=== PATIENT | female | born 1955 | race Caucasian/White ===

== ENCOUNTER → 2016-11-13 | Outpatient (CLI) | payer MEDICARE ==
[~2016-11-13] VITALS: Ht 157.5 cm; Wt 129.3 kg
[~2016-11-13] MED LIST: ALBU90AE IH; ATOR20TA66 PO; BETA15CR4 TP; CEPH250T PO; CLOT15CR5 TP; DOXY100C42 PO; FLUT100D2 IH; FOLI1TAB24 PO; FURO20TA4 PO; GABA-490 PO; GLIM4TAB PO; GUAI600T43 PO; HYDR-3816 PO; INSN1U SQ; INSU100V31 IJ; LEVO200T6 PO; LEVO25TA5 PO; LISI-556 PO; LORA10TA7 PO; METF500T4 PO; METH1VIA2 IJ; NYST1POW22 MC; OXYC-197 PO; RISP4TAB2 PO
== END ==
LOC: PREOP 13:18
PROVIDERS: ATTEND Thoracic Surgery (Cardiothoracic Vascular Surgery)
DX: Z01.818 Encounter for other preprocedural examination; M54.9 Dorsalgia, unspecified

== ENCOUNTER 2016-11-20 05:51 | Day surgery (SDC) | payer MEDICARE ==
[~2016-11-20] VITALS: Ht 157.5 cm; Wt 129.3 kg
[~2016-11-20 05:51] MED LIST changes: -DOXY100C42 PO; -GUAI600T43 PO; -OXYC-197 PO
[2016-11-20] MEDS: LACTATED RINGERS 1,000 ML IV PRN ×2 (06:20→08:55)
[2016-11-20] MEDS ORDERED: ceFAZolin 2 GM/50 ML NS 50 ML ONE (06:25)
[2016-11-20] MEDS ORDERED: ONDANSETRON 4 MG/2 ML (SDV) Z0FRAN ONE (06:34)
[2016-11-20] MEDS ORDERED: SUCCINYLCHOLINE INJ 100 MG/5 ML SYR ONE (06:34)
[2016-11-20] MEDS ORDERED: LIDOCAINE PF 2% 5 ML (XYLOCAINE) VIAL ONE (06:34)
[2016-11-20] MEDS ORDERED: proPOfol 200 MG/20 ML (DIPRIVAN) VIAL IV ONE (06:34)
[2016-11-20] MEDS ORDERED: MIDAZOLAM 2 MG/2 ML (VERSED) VIAL ONE (06:35)
[2016-11-20] MEDS ORDERED: fentaNYL INJECTION 100 MCG/2 ML AMP ONE (06:35)
[2016-11-20] MEDS ORDERED: RT-ALBUTEROL SULF 2.5 MG/3 ML PRE-MIX VIAL IH STA (06:37)
[2016-11-20] MEDS ORDERED: RT-ALBUTEROL SULF 2.5 MG/3 ML PRE-MIX VIAL ONE (06:37)
[2016-11-20 06:40] VITALS: BP 144/90
[2016-11-20] MEDS ORDERED: SEVOFLURANE (ULTANE) 15 ML INHAL SOLN ONE ×5 (06:43→09:05)
[2016-11-20] MEDS ORDERED: LACTATED RINGERS 1,000 ML IV ONE ×2 (06:43→09:05)
[2016-11-20] MEDS ORDERED: ceFAZolin 2 GM/NS 50 ML IV ONE (06:45)
[2016-11-20] MEDS ORDERED: VANCOMYCIN 1000 MG/VIAL ONE (06:47)
[2016-11-20] MEDS ORDERED: BUP/EPI 0.5% 1:200,000 (MARCAINE) 10ML VIAL IJ ONE (06:47)
[2016-11-20] MEDS ORDERED: CATHETER FLUSH 10 ML SYR IV PRN (07:00)
[2016-11-20] MEDS ORDERED: BACITRACIN 100,000 UNIT/NS 1000 ML POUR BOTTLE IR ONE ×2 (07:30)
[2016-11-20] MEDS ORDERED: OXYC-197 PO (09:02)
--- NOTE | 2016-11-20 09:05 | Discharge Inst-Simple/Standard ---
Discharge Inst-Standard Discharge Medications New, Converted or Re-Newed RX: RX on Chart Patient Instructions/Follow Up Plan of Care/Instructions/FU: follow up in clinic in 2 weeks keep inscions covered, clean and dry dont bend reach lift twist push or pull no driving until follow up Activity as Tolerated: No Discharge Diet: ADA Diet Return to [facility] For: fever chills shortness of breath MARILIN REYNOSO Nov 20, 2016 09:04
[2016-11-20] MEDS ORDERED: fentaNYL INJECTION 100 MCG/2 ML AMP IVP PRN (09:30)
[2016-11-20] MEDS ORDERED: ONDANSETRON 4 MG/2 ML (SDV) Z0FRAN IVP PRN (09:30)
[2016-11-20 10:10] VITALS: BP 153/79
[2016-11-20 10:40] VITALS: BP 145/82
[2016-11-20 11:10] VITALS: BP 156/55
[2016-11-20 11:30] VITALS: BP 156/55
--- NOTE | 2016-11-20 14:47 | Diagnostic Imaging Report ---
EXAMINATION: Intraoperative view of the spine. INDICATION: Spinal cord stimulator placement. 22 seconds of fluoroscopy time is provided. IMPRESSION: There is an epidural nerve stimulator placed projecting around the lower thoracic spine. Dictated by: Dictated on workstation # [id number]
--- NOTE | 2016-11-21 10:59 | OPERATIVE REPORT ---
PROCEDURE PHYSICIAN: JENNY FERRARO DATE OF PROCEDURE: 11/21/2015 SURGEON: Dr. Ferraro, [employer] OPERATIONS ENGINEER: JENNIFER Whyte. This is a medically necessary procedure and doctor assistant is necessary for retraction of vital neurovascular structures. Without an doctor assistant, the procedure would not be possible. PREOPERATIVE DIAGNOSIS: 1. Morbid obesity. 2. Lumbar radiculopathy. POSTOPERATIVE DIAGNOSIS: 1. Morbid obesity. 2. Lumbar radiculopathy. PROCEDURE PERFORMED: 1. Placement of spinal cord stimulator paddle lead via thoracic laminotomy at T10-11. 2. Placement of pulse generator. 3. Complex program. COMPLICATIONS: None. ESTIMATED BLOOD LOSS: Minimal. ANESTHESIA: General endotracheal tube anesthesia with local anesthetic. HISTORY OF PRESENT ILLNESS: Clau is a very pleasant, obese 61-year-old female presented to me after a successful trial by a pain doctor. She did wish to have placement of permanent paddle lead and she did experience 90% pain relief with that trial. She understood the risks and benefits. OPERATION: The patient was identified by name on wrist band in the preoperative holding area. Her operative site was signed, consent was signed. SCDs were placed, neural monitoring was hooked up and antibiotics were started. She was taken operating room theater, placed under general endotracheal tube anesthesia and transferred to the operating room table in the prone position. She was prepped and draped usual sterile fashion. A formal timeout was conducted. At this point AP x-ray was then brought in. I marked out the levels of the thoracic spine. I then made an incision over the midline over the indicated levels, which was laminotomy at T10-11. I placed the lead at T9, I proceeded with bilateral subperiosteal paraspinal muscular approach exposing the posterior elements. I then used Leksell rongeur, high speed bur and Kerrison rongeurs to perform a laminotomy at the T10-11 interspace. I gained access to the epidural space and I placed a [employer] Penta lead in the midline position over the body of T9. At this point, I worked with the [employer] rep as well as the neural monitoring rep to perform complex programming, a series of tests to ensure equal bilateral stimulation and once we did this, we were able to confirm that the lead was in the appropriate position and this gave us equal lower extremity stimulation. Therefore, I anchored the lead into the thoracic fascia. I made a right-sided flank incision and bluntly dissected out a pocket for the pulse generator and then used a passer to pass the leads from the midline thoracic wound to the flank. I obtained the [employer] Dong pulse generator. Placed the leads and final tightened those leads. Once again then [employer] rep confirmed appropriate connection of the pulse generator. Therefore, I buried the pulse generator in the subcutaneous tissue, I irrigated both wounds thoroughly with antibiotic enhanced irrigation. I closed the wound in my usual layered fashion utilizing 0 Vicryl, followed by 2-0 Vicryl, followed by maryann for skin. I applied bacitracin ointment, applied dressings, placed the patient in supine position took her to PACU where she awoke without incident. She tolerated the procedure well. PLAN: Plan at this time is to discharge patient today. She will be given follow-up date and time in 2 weeks. She knows to keep her wound clean and dry and change dressings daily. Please note instrumentation utilized was [employer] Dong Penta lead, [employer] Dong pulse generator. Also note neural monitoring was used throughout the procedure. We (s/l did have no motors) prior to positioning and this was unchanged throughout the procedure SSEPs, EMGs were stable. Job ID: [id number] Dictated Date: 11/20/2016 09:03:29 Lace Roller Date: 11/21/2016 10:43:10 / tete
== END 2016-11-20 11:30 | disposition home or self-care (01) ==
LOC: SDC 05:51
PROVIDERS: ATTEND Thoracic Surgery (Cardiothoracic Vascular Surgery)
DX: M54.16 Radiculopathy, lumbar region (principal); Z11.2 Encounter for screening for other bacterial diseases; E66.01 Morbid (severe) obesity due to excess calories; J45.909 Unspecified asthma, uncomplicated; J44.9 Chronic obstructive pulmonary disease, unspecified; F32.9 Major depressive disorder, single episode, unspecified; I10 Essential (primary) hypertension; E78.5 Hyperlipidemia, unspecified; E11.9 Type 2 diabetes mellitus without complications; F41.9 Anxiety disorder, unspecified; Z79.899 Other long term (current) drug therapy; K21.9 Gastro-esophageal reflux disease without esophagitis; G47.33 Obstructive sleep apnea (adult) (pediatric); Z68.43 Body mass index [BMI] 50.0-59.9, adult
CPT/HCPCS: 82962; 87081; 94640

== ENCOUNTER 2016-12-29 05:33 | Outpatient (CLI) | payer MEDICARE ==
[~2016-12-29] VITALS: Ht 157.5 cm; Wt 117.9 kg
[~2016-12-29 05:33] MED LIST changes: +OXYC-197 PO
[2016-12-29] MEDS ORDERED: GUAI600T43 PO ×2 (09:42)
[2016-12-29] MEDS ORDERED: RISP4TAB2 PO ×2 (09:42)
[2017-01-01] MEDS ORDERED: DOXY100C42 PO ×2 (11:31)
== END 2016-12-29 09:49 ==
LOC: PREOP 05:33
PROVIDERS: ATTEND Orthopaedic Surgery
DX: Z01.818 Encounter for other preprocedural examination (principal); T81.30XA Disruption of wound, unspecified, initial encounter

== ENCOUNTER 2017-01-01 09:26 | Day surgery (SDC) | payer MEDICARE ==
[~2017-01-01] VITALS: Ht 157.5 cm; Wt 117.9 kg
[~2017-01-01 09:26] MED LIST changes: +GUAI600T43 PO
[2017-01-01 09:40] VITALS: BP 140/78
[2017-01-01] MEDS ORDERED: ceFAZolin 2 GM/NS 50 ML IV ONE (09:45)
[2017-01-01] MEDS ORDERED: LACTATED RINGERS 1,000 ML IV PRN (10:40)
[2017-01-01] MEDS ORDERED: RT-ALBUTEROL SULF 2.5 MG/3 ML PRE-MIX VIAL INH ONE (10:45)
[2017-01-01] MEDS ORDERED: FAMOTIDINE 20MG/2ML IV (PEPCID) IV ONE (10:45)
[2017-01-01] MEDS ORDERED: SUCCINYLCHOLINE INJ 100 MG/5 ML SYR ONE (11:04)
[2017-01-01] MEDS ORDERED: LACTATED RINGERS 1,000 ML IV ONE (11:04)
[2017-01-01] MEDS ORDERED: LIDOCAINE PF 2% 5 ML (XYLOCAINE) VIAL ONE (11:04)
[2017-01-01] MEDS ORDERED: MIDAZOLAM 2 MG/2 ML (VERSED) VIAL ONE (11:04)
[2017-01-01] MEDS ORDERED: fentaNYL INJECTION 100 MCG/2 ML AMP ONE (11:04)
[2017-01-01] MEDS ORDERED: proPOfol 200 MG/20 ML (DIPRIVAN) VIAL IV ONE (11:04)
[2017-01-01] MEDS ORDERED: ONDANSETRON 4 MG/2 ML (SDV) Z0FRAN ONE (11:07)
[2017-01-01] MEDS ORDERED: GENTAMICIN 40 MG/ML 2 ML INJ SDV ONE (11:23)
[2017-01-01] MEDS ORDERED: BUP/EPI 0.5% 1:200,000 (MARCAINE) 10ML VIAL IJ ONE (11:23)
[2017-01-01] MEDS ORDERED: DOXY100C42 PO (11:31)
[2017-01-01] MEDS ORDERED: BACITRACIN 100,000 UNIT/NS 1000 ML POUR BOTTLE IR ONE ×2 (11:45)
[2017-01-01] MEDS ORDERED: VANCOMYCIN 1000 MG/VIAL ONE (12:02)
--- NOTE | 2017-01-01 12:59 | Discharge Inst-Simple/Standard ---
Discharge Inst-Standard Patient Instructions/Follow Up Plan of Care/Instructions/FU: keep incision covered, clean and dry will order PICC placement, then IV broad spectrum antibiotic coverage until cultures recieved consider referral to ID follow up 2 weeks in clinic Activity as Tolerated: No Discharge Diet: ADA Diet Return to [facility] For: fever chills shortness of breath excessive wound drainage MARILIN REYNOSO Jan 01, 2017 12:59
[2017-01-01] MEDS ORDERED: SEVOFLURANE (ULTANE) 15 ML INHAL SOLN ONE (13:02)
[2017-01-01] MEDS ORDERED: ONDANSETRON 4 MG/2 ML (SDV) Z0FRAN IVP PRN (13:30)
[2017-01-01] MEDS ORDERED: fentaNYL INJECTION 100 MCG/2 ML AMP IVP PRN (13:30)
[2017-01-01 14:00] VITALS: BP 137/61
[2017-01-01 14:30] VITALS: BP 129/80
[2017-01-01 15:15] VITALS: BP 119/68
[2017-01-01 16:45] VITALS: BP 125/83
[2017-01-01 17:10] VITALS: BP 125/83
--- NOTE | 2017-01-02 01:24 | OPERATIVE REPORT ---
DATE OF SERVICE: 01/01/2017 SURGEON: Jenny Ferraro DO SUPERVISOR DAIRY SANITATION: JENNIFER Wyhte This is a medically necessary procedure. An human resources executive assistant is necessary for retraction of vital neurovascular structures. Without an human resources executive assistant, the procedure would not be possible. PREOPERATIVE DIAGNOSES: 1. Morbid obesity. 2. Infected flank lumbar wound. POSTOPERATIVE DIAGNOSES: 1. Morbid obesity. 2. Infected flank lumbar wound. PROCEDURE PERFORMED: Irrigation and debridement of right flank wound with removal of pulse generator. COMPLICATIONS: None. SPECIMEN SENT: Aerobic, anaerobic deep tissue culture. DRAIN PLACED: A Hemovac. ANESTHESIA: General endotracheal tube anesthesia with local anesthetic. HISTORY OF PRESENT ILLNESS: The patient is a very pleasant 61-year-old morbidly obese female who had undergone implantation of spinal cord stimulator some time ago. She followed up in the office with draining wound which was slow to heal. This slowly then demarcated in eschar along the incision line and subsequently has dehisced with jeana pus. It was decided to take the patient to the operating room for removal of pulse generator, irrigation and debridement. OPERATION: The patient was identified by name on wrist band in the preoperative holding area. The operative site was signed, consent was signed. SCDs were placed. Antibiotics were started. She was taken to operating room theater, placed under general endotracheal tube anesthesia and transferred into prone position. All bony prominences were well padded. She was prepped and draped in usual sterile fashion. Formal timeout was conducted. Incision was then made over the old incision line. I immediately noticed cloudy purulent fluid coming from the wound. I took deep cultures of this. I irrigated the wound thoroughly and removed any devitalized tissue. I disconnected the pulse generator. I cleaned the paddle lead cables and irrigated copiously the wound. When I was satisfied with the quality of the tissue, maintained hemostasis and placed a Hemovac drain and tucked it deep into the pocket. I did close the wound in my usual layered fashion utilizing 0 Vicryl followed by 2-0 Vicryl followed by 4-0 nylon stitch in interrupted horizontal fashion. I placed Xeroform followed by 4 x 4's followed by Tegaderm. I also 1 gram of vancomycin powder into the wound prior to closing it. PLAN: At this time, is PICC line in the patient today. We will start her on IV antibiotics. Follow the cultures. I will have the patient followup to see me in 2 days to remove her drain. I will adjust the IV antibiotics accordingly based on the culture results. Job ID: [id number] DocumentID: [id number] Dictated Date: 01/01/2017 12:34:38 Meter And Regulator Shop Supervisor Date: 01/02/2017 01:23:39 Dictated By: JENNY FERRARO DO
== END 2017-01-01 17:10 | disposition home or self-care (01) ==
LOC: SDC 09:26
PROVIDERS: ATTEND Orthopaedic Surgery
DX: T81.4XXA Infection following a procedure, initial encounter (principal); E66.01 Morbid (severe) obesity due to excess calories; I10 Essential (primary) hypertension; E78.5 Hyperlipidemia, unspecified; F17.210 Nicotine dependence, cigarettes, uncomplicated; J44.9 Chronic obstructive pulmonary disease, unspecified; Z99.81 Dependence on supplemental oxygen; K21.9 Gastro-esophageal reflux disease without esophagitis; E11.9 Type 2 diabetes mellitus without complications; E03.9 Hypothyroidism, unspecified; Z79.899 Other long term (current) drug therapy; Z68.42 Body mass index [BMI] 45.0-49.9, adult; Z11.2 Encounter for screening for other bacterial diseases
CPT/HCPCS: 36569; 76937; 82962; 87070; 87075; 87081; 87205; 94640